=== PATIENT | male | born 1955 | race Caucasian/White ===

== ENCOUNTER 2019-01-27 15:13 | Inpatient (IN) | payer OTHER ==
[~2019-01-27] VITALS: Ht 177.8 cm; Wt 91.6 kg
[~2019-01-27 15:13] MED LIST: MEDROLDOSEPACK PO
--- NOTE | 2019-01-27 18:07 | NUR ---
1700: Admitted to room 527-B via gerney by EMT transport from [facility]. Pt oriented x3, ambulatory in halls, pacing with staff at side, voices unhappiness about admission. Awaiting admission information entry to complete admission. Dr. Anand aware of admission. 1814: Dr. Anand here to see pt. and to enter admission orders.
[2019-01-27 18:35] VITALS: BP 140/80
[2019-01-27] MEDS ORDERED: LEVOTHYROXINE150 MCG PO (19:40)
[2019-01-27] MEDS ORDERED: NORVASC5 MG PO (19:42)
[2019-01-27] MEDS ORDERED: XANAX1 MG PO (19:43)
[2019-01-27] MEDS ORDERED: ZESTRIL40 MG PO (19:43)
[2019-01-27] MEDS ORDERED: OMEPRAZOLE 20 M20 M1 PO (19:44)
--- NOTE | 2019-01-27 22:46 | NUR ---
INTERVIEWED PATIENT AND PAPERWORK SIGNED. WELCOME PACKET GIVEN AND ORIENTED TO ROOM AND ASKING FOR HELP. PATIENT MEDS GIVEN. ADMISSION ASSESSMENT DONE. CLOSE OBSERVATION D/T SI. PATIENT TOOK HS MED BUT WAS DEMANDING HIS XANAX THAT HE HAS TAKEN SHELTER. DR ROSE NOTIFIED BY SONYA SANTANA AND ORDER TO GIVE XANAX DIRECTED AT THIS TIME. PATIENT LAYING IN BED AND SLEEPING BUT AWAKES EASILY TO RESPOND TO HIS NAME BEING CALLED AND QUESTIONS ANSWERED. VOICES UNDERSTANDING TO CALL FOR ASSISTANCE IF NEEDED OR IF QUESTIONS. GANGLION CYST HX RIGHT WRIST WITH SURGICAL/LACERATION SCAR FROM PAST. PATIENT SLEEPING. WILL CONTINUE TO MONITOR.
--- NOTE | 2019-01-28 00:56 | NUR ---
VERIFIED MEDICATION WITH PHARMACY, PHARMACY REPORTS MEDICATION PICKED UP ON 01/23/19 AND MED REC COMPLETED. ACCORDING TO TRANSFER PAPERWORK PATIENT REPORTS HE DID NOT TAKE XANAX TO OD, THE REMAINING AMOUNTS WERE IN WEEKLY DOSEAGE CONTAINERS. DR. ROSE NOTIFIED TO RESUME MEDICATION.
[2019-01-28 01:25] VITALS: BP 140/80
--- NOTE | 2019-01-28 06:11 | NUR ---
THIS NURSE ENTERED PATIENTS ROOM TO ADMINISTER MEDICATION AT APPROXIMATELY 0608, PATIENT KEPT REPEATING 'I NEED XANAX BAD' THIS NURSE INSTRUCTED HIM THAT HE WOULD NEED TO TALK WITH THE DOCTOR. THIS NURSE ALSO REINFORCED I VERIFIED HIS MEDICATIONS WITH HIS PHARMACY AND THEY REPORTED THAT YOUR PRESCRIPTION IS 1MG AT BEDTIME. PATIENT IS IRRITABLE THIS MORNING UPON ADMINISTERING MEDICATIONS.
--- NOTE | 2019-01-28 06:42 | NUR ---
PATIENT SLEPT FOR 11 HOURS PER CONSUMER ATTORNEY
[2019-01-28 07:30] VITALS: BP 94/56
--- NOTE | 2019-01-28 08:30 | NUR ---
PT WANTING TO KNOW WHAT HE GOT LAST NIGHT. PT WANTING ANXIETY MED XANAX. PT MENTIONED THAT HE HAS PTSD AND LOUD NOISES SETS HIM OFF. PT STATED IF HE DIDN'T GET HIS ANXIETY MED HE WOULD GO OFF IN THE DINNING ROOM AND NO ONE CAN STOP HIM.
[2019-01-28 09:17] VITALS: BP 94/56
--- NOTE | 2019-01-28 10:14 | NUR ---
ADM LORAZEPAM 1MG PO FOR ANXIETY.
--- NOTE | 2019-01-28 10:47 | NUR ---
After Dr. Anand met with Kike, he informed me that Kike has chronic pain. Per Dr. Anand, Kike reported he takes oxycodone [address] Sohail Dutta is his perscriber. I contacted Dr. Gill for orders for pain medication. Please seer orders for details.
--- NOTE | 2019-01-28 11:19 | NUR ---
WENT INTO TO GIVE PO PAIN MED. PT RESTING WITH EYES CLOSED.
--- NOTE | 2019-01-28 12:16 | NUR ---
PT REFUSING TRAMADOL STATING IT DOESN'T WORK. PT STATED HE WILL STAY IN PAIN, HE TRIED TRAMADOL BEFORE.
[2019-01-28] MEDS ORDERED: OXYCODONE HCL15 MG PO (12:21)
--- NOTE | 2019-01-28 12:26 | NUR ---
CALLED DR. BERNAL AND STATED THAT HE CAN'T HAVE NARCOTICS AND BENZOS. PT TAKES OXI IR 15MG TID PRN AT HOME SINCE 1997.
--- NOTE | 2019-01-28 13:12 | NUR ---
TOLD PT ABOUT WHAT SAID ABOUT PAIN MEDICATION, HE STATED HE WILL NEED HIS ANXIETY MED THEN. PT NOT ATTENDING GROUP AT THIS TIME.
--- NOTE | 2019-01-28 14:53 | NUR ---
PT STILL IN BED.
--- NOTE | 2019-01-28 15:19 | NUR ---
ADM LORAZEPAM 0.5MG PO FOR ANXIETY. PT HAS BEEN IN ROOM MOST OF DAY EXCEPT FOR MEDS AND TO EAT.
--- NOTE | 2019-01-28 16:14 | NUR ---
SW attempted to speak with pt on today. PT would not engaged in conversation. Pt asked if I would leave his room.
--- NOTE | 2019-01-28 17:29 | NUR ---
PT CAME OUT TO EAT DINNER. PT STILL WANTING PO PAIN MED. CLARIFIED WITH [facility] WITH PAIN MED REGIMEN. PT STATED HE IS STARTING TO GO THROUGH WITHDRAWLS.
--- NOTE | 2019-01-28 19:37 | NUR ---
Per report pt wanting a different pain med than tramadol. Pt stated tramadol and fentanyl do not work. Per report pt was taking oxycodone 15mg po tid at home (home pharmacy said it was bid). Pt was also taking xanax at home 1mg po q 4hr. Facility orders for ativan 0.5mgs. Pt states he is having increased anxiety and wants increase or change in medication. Per report Paige did not want to continue oxycodone, Dr Anand contacted by day nurse and he did not wish to change orders from Paige. EDUARDO Lott contacted this shift, shared above information, no new orders at this time and she will pass on for in am to readress. Pt updated regarding information.
--- NOTE | 2019-01-28 19:44 | NUR ---
PATIENT APPROACHED THE NURSES STATION AND STATED 'IM GOING THROUGH WITHDRAWALS ITS SO BAD I HAVE BEEN ON THESE MEDS SINCE 98 AND [facility] HAVE EVEN COUNTED MY MEDS BEFORE.' THIS NURSE ADMINISTERED PRN LORAZEPAM ORDERED.
[2019-01-28 19:49] VITALS: BP 120/80
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
--- NOTE | 2019-01-29 00:06 | NUR ---
PATIENT COMPLAINED OF GENERALIZED PAIN /, COMPLAINING OF WITHDRAWALS STATING HE HAS NOT HAD PAIN MEDICATION IN TWO DAYS. HE DOES HAVE A HX OF INJURIES WITH CHRONIC PAIN. NOTIFIED PRETTY LARRY POST ANESTHESIA NURSE WITH ORDERS TO GIVE OXYCODONE 15MG X1. GIVEN ORDERED TO PATIENT. WILL CONTINUE TO MONITOR.
--- NOTE | 2019-01-29 06:07 | NUR ---
PATIENT SLEPT 4.8 HOURS PER CARAMEL CANDY MAKER HELPER. PT REPORTS HE 'ALWAYS WAKES UP EARLY BECAUSE OF MY OLD WORK SCHEDULE.'
[2019-01-29 08:30] VITALS: BP 149/104
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
[2019-01-29 08:45] VITALS: BP 138/94
--- NOTE | 2019-01-29 09:00 | NUR ---
PT TALKING WITH DR. MARISCAL AT THIS TIME.
--- NOTE | 2019-01-29 09:20 | NUR ---
PT IN ROOM. ADM ATIVAN 0.5MG PO FOR ANXIETY. PT STATED NOW LEAVE ME ALONE, HE STATED HE GOT UP 0330 AM.
--- NOTE | 2019-01-29 10:23 | NUR ---
SW attempted to engaged pt with his medical care through [facility]. Pt stated that he is not willing to speak with SW concerning medical. SW mention if pt is willing to engage in IOP. Pt stated he unwilling to participate in the program. SW will follow-up with pt, and Dr. Anand.
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
--- NOTE | 2019-01-29 11:45 | NUR ---
PT ASKING FOR PO PAIN MED AT THIS TIME. PT STATED HE IS STARTING TO CRAW AGAIN LIKE HE DID LAST NIGHT.
--- NOTE | 2019-01-29 11:48 | NUR ---
The community service specialist saw Kike israel out of his room. He had an unsteady gait. Kike was breathing heavily. I went ot see if he needed help. He was holding on to the side rails in the hallway. He c/o pain. He was holding his L upper rib cage. He stated that he 'ran into something'. I examined the area, there is no redness, swelling or bruising. His primary nurse asked if he wanted and x-ray. Kike stated no. He stated that he felt like he broke a rib. I walked with him up and down the hallway due to his unsteay gait. He stated that he was crawling on the floor last night as he could not walk b/c he was in so much pain. Kike stated that he took oxcodone 3 - 5mg tabs and that helped. 'But now it has wore off look at me. The Ativan and Xanax work.' As we were walking his gait imporved. His posture would change frequently from being slumped shoulders to an erect posture. Dr. Gibson and Kika were notified. Kike stated that he did not want to talk to that [place] doctor; he wants to speak with the white doctor.
--- NOTE | 2019-01-29 14:52 | NUR ---
PT HAD ORDER TO GET CHEST XRAY DUE TO HITTING FRAME OF DOOR WHEN COMING OUT OF ROOM AT LUNCH TIME. PT REFUSED TO GO DOWN TO GET XRAY. PT WAS FORCEFULLING HITTING LEFT SIDE OF CHEST SAYING HE IS OK AND HE HAS HAD MORE BRUISES AND CUTS THAN ANYONE.
--- NOTE | 2019-01-29 15:19 | NUR ---
PSYCHOSOCIAL ASSESSMENT Diagnosis: UNSPECIFIED DEPRESSIVE DISORDER Admit Date: 01/27/19 Psychiatrist: DAVEY Symptoms associated with current admission: Suicidal ideation/attempt Self mutilation/harm Anxiety/panic Others Hallucinations Paranoid ideation Poor impulse control Presenting problems: Pt stated that he was coming off of Chantix. Pt stated that he was suicidal, and homicidal. Pt stated that he does not remember having a gun. Precipitating Factors: Non-compliance psychothx Comments: Pt stated that he was hallucinating. Pt stated that he was seen rats. Pt stated that he was having side effects of Chantix. Pt stated that he does not remember anything. He stated that he want to kill his friend Jose Armando for 50 years. History of High Risk Behavors: Hx violence/aggression Past suicide attempts Suicide Risk Factors: C A-Signs of alcohol/substance abuse w/ suicide ideation B-Recent suicidal thoughts or attempts C-Recent thoughts or attempts of harming someone else D-Altered mental status due to psychiatric/chem dep etiology E-The behavior exists - add comment PSYCHIATRIC HISTORY Age of onset: 63 Prior hospitalizations: Denies hx hospitalization Hospital names and dates, if available: Most Recent Outpatient HX: Denies prior OP services Additional information: Legal Status: Voluntary Guardian/Conservatorship type: Contact name: Contact phone: Other: Name: Phone: Other legal issues: (Arrests/convictions Current Status) Pt stated fled scene of crime. Pt stated that he fled from the police P.O. Name and Phone #: FAMILY HISTORY Place of : [place], [place] Raised in: [place] # Siblings & order: No sibilings Describe relationships within family of origin: Pt was close to his mother. Any psychiatric or substance abuse problems within family of origin: Y Has patient been sexually or physically abused, neglected or been taken advantage of financially? N Has the abuse been reported? N Other pertinent family information: Marital history/significant relationships: Domestic violence: N Children ages & who is caring for them: Pt stated he does not have children Is child welfare involved? N Drug history: Pt stated he smoke marijuana. Pt stated he live on pain pills Alcohol Use: Frequency: Quantity: Have you ever felt you ought to Cut down on drinking? Have people Annoyed you by criticizing your drinking? Have you ever felt bad or Guilty about your drinking? 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 AXIS SCREENING TOOL Niwot I Mood Disorders: Depression Niwot II Personality/Mental Retardation: Niwot III Medical Impairment: CHF HTN Niwot IV Problem(s) with: Primary support group Health care services Other psych/environ prob Niwot V: Additional Niwot comments: PERSONAL BACKGROUND Relevant cultural issues (ethnicity, values, beliefs, spiritual): Spiritual Protestant: Rastafarian Importance of latter-day to patient: High What hobbies/interests does the patient have? Riding his motorcycle Sexual orientation (relevant impact to current treatment): Heterosexual : Where did you serve: Branch of service: Rank: Discharge status: Are you a combat ? Occupational/Work: Do you work? N Do you want to work? N How many hours do you work/week? 0 How many jobs have you had in the past 5 years? 0 Do you need assistance finding a job? N Does the patient need assistance in job training? N Source of income: SSI Does patient have a Payee? Payee name: Approximate monthly income: 1000 Does patient have adequate funds for next 30 days? Y Education background: High school diploma Highest grade completed: 12th grade Other Educational/training programs: Functional deficits: Explain functional deficits: Current living situation: House/apartment Address/phone where pt. is livin[address] [place] [address] Does the patient plan to continue there after DC? Yes Patient lives with: Alone Will family/significant other be involved in treatment? Other community support services utilized: Pt will need appointment with [facility] Support System Available (family/friend) Name: Phone: Relationship: Name: Phone: Relationship: Name: Phone: Relationship: Patient strengths: Humor Patient's assets: Verbal Patient's weaknesses: Poor social skills Poor relationships Poor family support Health problems Chronic hx mental illness Additional weaknesses: Pt stated that he does not have support of family or friends. Pt stated that he does not have anyone can assist him with his healthcare. Patient's perception of current licensed master social worker/case management needs: Pt stated that SS is someone he can confide with his problems. PRELIMINARY DISCHARGE PLAN Discharge plan/Community resource contacts: Pt will d/c home. Discharge needs: Pt will need IOP, and follow-up with [facility] Health Problems anticipated on discharge: Compliance w/ med regimen Comments: (factors affecting DC plan/pt. response/interventions) Pt will d/c home, and follow-up with his primary doctor.
--- NOTE | 2019-01-29 15:19 | NUR ---
ADM LORAZEPAM 0.5MG PO FOR ANXIETY. PT HOLDING LEFT SIDE AND LIMPING.
--- NOTE | 2019-01-29 17:00 | NUR ---
PT OUT OF ROOM AND EATING DINNER. PT GOES BACK TO ROOM AFTER EATING.
[2019-01-29 20:26] VITALS: BP 106/64
--- NOTE | 2019-01-29 21:43 | NUR ---
ASSUMED CARE OF THE PT AT 1915 PM. ALERT ER ORIENTED X 3. MAKES NEEDS KNOWN. WALKS LEANING TO THE RIGHT. HEART RATE REGULAR, LUNGS CLEAR BILATERALLY, RESP., EVEN AND UNLABORED. +BS HEARD IN ALL 4 QUADRANTS. ABD SOFT, SLIGHTLY DISTENDED. +PP BILATERALLY. DENIES ANXIETY, DEPRESSION, SI, HI, AND A/V HALLUNICATIONS. TOOK HIS MEDICATIONS SCHEDULED. REMAINS ON 12 MINUTE CHECKS FOR HIS SAFETY.
--- NOTE | 2019-01-30 05:09 | NUR ---
WHEN MAKING ROUNDS THIS DIRECTOR COMPENSATION ASKED THE PT IF HE WOULD LET ME REMOVE HIS NICOTENE PATCH, WHICH HE REFUSED AT THAT TIME, STATING THAT IT WAS JUST PLACED YESTERDAY AFTERNOON.
--- NOTE | 2019-01-30 06:40 | NUR ---
THE PT SLEPT 8.8 HOURS LAST NIGHT. HE TOOK HIS AM MEDICATIONS WITHOUT ANY DIFFICULTY.
--- NOTE | 2019-01-30 07:46 | NUR ---
PT LIMPING AT DESK AND HOLDING ONTO ALTAMIRANO. PT WANTING TO HAVE ATIVAN. ADM ATIVAN 0.5MG PO. PT ASKING ABOUT PAIN MED AND TOLD PT NONE IS ORDERED EXCEPT TRAMADOL. PT STATED HIS DRMaggie WILL INCREASE HIS PAIN MED TO 30MG SOON. HE SAID HE IS ONE OF THE FEW CASES THAT NEED TO HAVE HIS PAIN MED.
[2019-01-30 08:00] VITALS: BP 115/85
[2019-01-30 09:12] VITALS: BP 115/85
--- NOTE | 2019-01-30 09:21 | NUR ---
AFTER BREAKFAST, PT GOES BACK TO ROOM AND LAYS DOWN.
[2019-01-30 10:23] VITALS: BP 115/85
--- NOTE | 2019-01-30 10:27 | NUR ---
Patient Name: SHERRY RDZ Admission Date: 01/27/19 DISCHARGE PLAN: Pt will d/c home. Care Assessment: Pt was assessed by Dr. Anand and diagnosed with Unspecified Depression. SW and Dr. Anand assessed by pt for suicidal ideation or homicidal. Pt denied been suicidal or homicida. Level II Assessment: None Transportation: Pt will be transported to [address] [place] [address] Special Instructions/Notes: Pt was schedule appointment through the [facility] on February 04, 2019 at 11:00am. DISCHARGE TO FACILITY: Home Facility: Phone: Fax: Address: [address] [place] [address] Contact Name: Phone: PCP: MARCUS Psychiatrist: [facility]
--- NOTE | 2019-01-30 12:10 | NUR ---
PT LEFT VIA ZTRIP TO HOME. PT HAS DR. BEAVER TODAY AT 2:10. PT WALKED OUT WITH STAFF TO GET MEDS FROM PHARMACY THEN WAITED WITH STAFF FOR CAB. PT CALLING FOR A RIDE TO GET TO DR. SHUKLA TODAY.
--- NOTE | 2019-01-31 09:43 | D ---
[facility] [place] [address] DISCHARGE SUMMARY Name: SHERRY RDZ Room #: 527B-B DIS IN M.R.#: [id number] Admission: 01/27/19 ������������������ Attend Phys: Andrzej Anand DO Discharge: 01/30/19 ������������������ Date of : 57 Report #: [id number] THIS REPORT FOR: //name// CC: Andrzej Dutta DATE OF SERVICE: 01/30/2019 INPATIENT PSYCHIATRIC DISCHARGE SUMMARY ATTENDING PHYSICIAN: Andrzej Anand DO. CROZE CUTTER HELPER: Giovanni Gill M.D. DISCHARGE DIAGNOSES: Unspecified depressive disorder, improved; suspicion for opiate dependence and personality features; tobacco use disorder, the patient does not want to pursue cessation. DISCHARGE PLAN: He is discharged to his home in [place], [place]. The patient has an appointment this afternoon with his primary care physician, Dr. Meri Dutta at 02:15. Dr. Dutta is aware of the patient's recent presentation to the [facility] and the Psychiatric Unit at [facility] and the concern that controlled substances may have played. DISCHARGE MEDICATIONS: No prescriptions were provided at discharge. However, he is to continue with all his home medications, levothyroxine sodium 150 mcg p.o. daily for hypothyroidism, amlodipine besylate 5 mg p.o. daily for hypertension, Alprazolam 1 mg p.o. at bedtime for sleep, lisinopril 40 mg p.o. daily, omeprazole 20 mg p.o. daily for GERD, LISINOPRIL for hypertension and Oxycodone IR 15 mg p.o. b.i.d. p.r.n. for pain. The patient is no longer on Medrol Dosepak. LABORATORY DATA: Laboratories were done at the [facility], so none during the present admission. REASON FOR ADMISSION: Reported suicidal ideation with a plan to shoot himself. The patient also had made some comments about homicidal ideation, but they were well substantiated. HOSPITAL COURSE: The patient was admitted to the Adult Psychiatry Unit. The patient was largely noncooperative with milieu activities, medication seeking including pain complaints. The patient at times would embellish symptoms such as exaggerating gait difficulty. During the course of the hospitalization, the patient displayed no suicidal or homicidal behavior. He was future oriented, wanting to see his dog and he wanted to see his primary care physician for his pain management as outpatient appointment. He made a number of claims that were [facility] [address] [place] [address] DISCHARGE SUMMARY Name: SHERRY DRZ Room #: 527B-B DIS IN M.R.#: [id number] Admission: 01/27/19 ������������������ Attend Phys: Andrzej Anand DO Discharge: 01/30/19 ������������������ Date of : 57 Report #: [id number] unsubstantiated. 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 He later refuted that story to the social media director. It was difficult to tell exactly what the patient's history was. The patient was cautioned about inappropriate use of the firearm and dangers of weapon. He states he will keep his gun in the weapon locker. At the time of discharge, the patient was not suicidal or homicidal. PHYSICAL EXAMINATION VITAL SIGNS: Temperature 36.7, pulse 88, respirations 16 and BP 115/85. MUSCULOSKELETAL EXAMINATION: Exaggerated gait disturbance. MENTAL STATUS EXAMINATION: This is a well-developed, disheveled male, appearing stated age, actually older than stated age. Attention intact. Concentration intact. Speech normal in rate, volume and tone. Thought process linear and goal directed. Thought of content focused on discharge and medication seeking. No psychomotor agitation. Some retardation. Denied SI or HI. Denied hopelessness or helplessness. Memory, the patient refused to cooperate with [facility] Mental Status Examination and we could not formally test his memory. Insight limited. Judgment limited. Fund of knowledge, no greater than average. PROGNOSIS: Prognosis for this patient is guarded given addictive behavior, avoidance and likely giving some inconsistent information. ��������������������������������������������� <ELECTRONICALLY SIGNED> ���������������������������������������� By: Andrzej Aannd DO ��������������������������������������������� 01/31/19 [id number] Andrzej Anand DO /nt
== END 2019-01-30 12:10 | disposition home or self-care (01) | DRG 881 ==
LOC: SBH 15:13
PROVIDERS: ADMIT Psychiatry & Neurology Psychiatry
DX: F32.9 Major depressive disorder, single episode, unspecified (principal); R45.851 Suicidal ideations; I50.22 Chronic systolic (congestive) heart failure; I13.0 Hypertensive heart and chronic kidney disease with heart failure and stage 1 through stage 4 chronic kidney disease, or unspecified chronic kidney disease; G89.29 Other chronic pain; E78.5 Hyperlipidemia, unspecified; E03.9 Hypothyroidism, unspecified; I27.20 Pulmonary hypertension, unspecified; N18.3 Chronic kidney disease, stage 3 (moderate); Z88.8 Allergy status to other drugs, medicaments and biological substances; Z86.711 Personal history of pulmonary embolism; Z86.73 Personal history of transient ischemic attack (TIA), and cerebral infarction without residual deficits; Z95.5 Presence of coronary angioplasty implant and graft; Z87.891 Personal history of nicotine dependence; Z82.49 Family history of ischemic heart disease and other diseases of the circulatory system; Z82.61 Family history of arthritis
CPT/HCPCS: 10880